=== PATIENT | male | born 1995 | race Caucasian/White ===

== ENCOUNTER 2022-02-19 20:21 | Emergency (ER) | payer OTHER ==
[~2022-02-19] VITALS: Ht 182.9 cm; Wt 68.0 kg
[2022-02-19] MEDS ORDERED: IBUP600 PO (20:49)
[2022-02-19] MEDS ORDERED: AMOCLA875 PO (20:49)
== END 2022-02-19 21:20 | disposition home or self-care (01) ==
LOC: ER 20:21
DX: S41.152A Open bite of left upper arm, initial encounter (principal); Z23 Encounter for immunization; W54.0XXA Bitten by dog, initial encounter
CPT/HCPCS: 90471; 90714; 99283; A9270

== ENCOUNTER 2024-01-05 21:30 | Emergency (ER) | payer OTHER ==
[~2024-01-05] VITALS: Ht 180.3 cm; Wt 74.8 kg
[~2024-01-05 21:30] MED LIST: AMOCLA875 PO; IBUP600 PO
[2024-01-05 23:04] LABS: BASOPHILS ABSOLUTE AUTO 0.06 K/mm3 (0.00-0.23); BASOPHILS PERCENT AUTO 0 % (0-2); EOSINOPHILS ABSOLUTE AUTO 0.02 K/mm3 (0.00-0.68); EOSINOPHILS PERCENT AUTO 0 % (0-6); Hematocrit 41.9 % (37.0-53.0); Hemoglobin 13.9 g/dL (13.5-17.5); IMMATURE GRAN ABSOLUTE AUTO 0.12 K/mm3 (0.00-0.10); IMMATURE GRAN PERCENT AUTO 1 % (0-1); LYMPHOCYTES ABSOLUTE AUTO 0.99 K/mm3 (0.84-5.20); LYMPHOCYTES PERCENT AUTO 4 % (21-46); MONOCYTES ABSOLUTE AUTO 1.18 K/mm3 (0.16-1.47); MONOCYTES PERCENT AUTO 5 % (4-13); Mean Corpuscular HGB 29.5 pg (26.0-34.0); Mean Corpuscular HGB Conc 33.2 g/dL (31.5-36.5); Mean Corpuscular Volume 89 fL (80-100); Mean Platelet Volume 10.4 fL (9.1-12.4); NEUTROPHILS ABSOLUTE AUTO 21.41 K/mm3 (1.96-9.15); NEUTROPHILS PERCENT AUTO 90 % (41-73); Platelet Count 289 K/mm3 (150-400); RDW Coefficient Variation 12.6 % (11.7-14.2); RDW Standard Deviation 41.3 fL (35.1-46.3); Red Blood Cell Count 4.71 M/mm3 (4.30-5.90); White Blood Cell Count 23.78 K/mm3 (4.00-11.30)
[2024-01-05 23:23] LABS: Albumin, Blood 4.3 g/dL (3.4-5.0); Albumin/Globulin Ratio 1.1 (0.8-1.8); Bilirubin, Total 0.4 mg/dL (0.1-1.0); Bun/Creatinine Ratio 23.8 (12.0-20.0); Calcium, Blood 9.6 mg/dL (8.5-10.1); Creatinine, Blood 1.22 mg/dL (0.60-1.20); Potassium, Blood 4.5 mmol/L (3.5-5.5); Total Protein, Blood 8.3 g/dL (6.4-8.2)
[2024-01-06 00:15] VITALS: BP 126/84
== END 2024-01-06 00:45 | disposition home or self-care (01) ==
LOC: ER 21:30
PROVIDERS: Physician Assistant
DX: S06.0X1A Concussion with loss of consciousness of 30 minutes or less, initial encounter (principal); S01.311A Laceration without foreign body of right ear, initial encounter; S01.111A Laceration without foreign body of right eyelid and periocular area, initial encounter; S01.81XA Laceration without foreign body of other part of head, initial encounter; S30.0XXA Contusion of lower back and pelvis, initial encounter; V47.5XXA Car driver injured in collision with fixed or stationary object in traffic accident, initial encounter
CPT/HCPCS: 70450; 72125; 73130; 73562-RT; 80053; 85025; 99285-25

== ENCOUNTER 2024-01-11 21:43 | Emergency (ER) | payer OTHER ==
[~2024-01-11] VITALS: Ht 180.3 cm; Wt 86.2 kg
[2024-01-11 22:09] VITALS: BP 130/74
== END 2024-01-11 23:56 ==
LOC: ER 21:43
DX: Z53.21 Procedure and treatment not carried out due to patient leaving prior to being seen by health care provider (principal)
CPT/HCPCS: 71046